=== PATIENT | male | born 1970 | race African-American/Black ===

== ENCOUNTER 2018-01-04 04:03 | Observation (INO) ==
[2018-01-04] MEDS ORDERED: Ketorolac Inj 30 MG/ML (IVP) Vial IV.PUSH ONE (04:17)
--- NOTE | 2018-01-04 04:24 | ED ---
HPI General Chief Complaint: Chest Pain Stated Complaint: Chest Pain Time Seen by Provider: 01/04/18 04:17 Source: patient and EMS Mode of arrival: EMS Limitations: no limitations History of Present Illness HPI narrative: 47-year-old male with history of hypertension and 2-year history of polysubstance abuse presents to the emergency department by EMS transport for complaint of not feeling well and having chest pain. Patient states he was recently seen in the emergency department here observed overnight and discharged without a stress test. Patient states he had a stress test in the past but not for some time. Patient lives in [place] normally but is here and states that this is not unhealthy environment for him due to all the drugs that are available. Patient admits to daily alcohol use and admits to cocaine use. Patient states that he is trying to move back to [place] but in the meantime because of not feeling well decided to come to the emergency room. Patient states that he has had no relief from the nitroglycerin provided by paramedics and was given aspirin prior to arrival to the emergency department. Patient states he feels like he is getting some shakes from not drinking alcohol recently. Patient states he last used cocaine 2 days ago. Patient has not felt well for 2 days. Patient denies other complaints. "I need somebody to tell me what is wrong because I know something is wrong". complaint: Reports chest pain STEMI Alert: No Onset (ago): day(s) Duration: intermittent and progressively worsening Onset: during rest, during exertion and associated with drug use Pain location: Reports substernal Severity: severe Severity scale (1-10): 7 Quality: Reports tightness, aching and dull Pain radiation: Reports none Relieving factors: nothing Exacerbating factors: exertion and movement Context: Denies recent illness, recent surgery, recent immobilization, recent travel, trauma/injury, new medications and history of DVT/PE Associated symptoms: Denies nausea, vomiting, diaphoresis, dyspnea, sense of impending doom, syncope, palpitations, fever, cough and leg swelling Treatments prior to arrival chest pain: Reports aspirin and nitroglycerin Related Data Home Medications Medication Instructions Recorded Confirmed lisinopril 10 mg PO DAILY 12/25/17 01/04/18 quetiapine [Seroquel] 200 mg PO BID 12/25/17 01/04/18 Allergies Allergy/AdvReac Type Severity Reaction Status Date / Time No Known Allergies Allergy Verified 12/25/17 11:37 Review of Systems ROS: all other systems reviewed are negative PMFSH Medical History Medical History Bipolar 1 disorder (Acute) Depression (Acute) Hypertension (Acute) Social History Social History Substance History: Active Abuse Second Hand Smoke Exposure: No Smoking Status: Current every day smoker Tobacco Type: Cigarettes How Often Do You Have a Drink Containing Alcohol: 4 or more times a week Recent Travel in [facility] within the Last 8 Weeks: No Recent Out of Country Travel within the Last 8 Weeks: No Exam Narrative Exam Narrative: GENERAL: Well-nourished, well-developed patient. GCS 15. No acute distress no respiratory distress. SKIN: Focused skin assessment warm/dry. HEAD: Normocephalic. EYES: No scleral icterus. No injection or drainage. NECK: Supple, trachea midline. No JVD or lymphadenopathy. CARDIOVASCULAR: Regular rate and rhythm without murmurs, gallops, or rubs. RESPIRATORY: Breath sounds equal bilaterally. No accessory muscle use. GASTROINTESTINAL: Abdomen soft, non-tender, nondistended. MUSCULOSKELETAL: No cyanosis, or edema. BACK: Nontender without obvious deformity. No CVA tenderness. Course Initial Documented Vital Signs Pulse Rate 87 01/04/18 04:07 Respiratory Rate 14 01/04/18 04:07 Blood Pressure 138/90 01/04/18 04:07 Pulse Oximetry 99 01/04/18 04:07 Last Documented Vital Signs Pulse Rate 87 01/04/18 04:20 Respiratory Rate 17 01/04/18 04:20 Blood Pressure 138/90 01/04/18 04:20 Pulse Oximetry 100 01/04/18 04:20 Medical Decision Making MDM Narrative Medical decision making narrative: 47-year-old male with history of substance use and hypertension presents for evaluation of chest pain and not feeling well. Patient placed on monitor and storage bin tender IV access obtain EKG ordered specimens collected and sent for resulting patient is Arty received nitroglycerin without relief administered Toradol 30 mg IV CBC with automated differential and metabolic panel grossly normal range Troponin I less than 0.02 CK-MB percent not elevated EKG shows no acute ST elevation or injury pattern Patient given Toradol for pain management with some pain relief but continues to complain of pain. Patient has history of cocaine abuse age 47 and hypertension returns for complaint of chest pain will place in chest pain center per protocol in view of history of alcohol use and serum alcohol 3 will also add [facility] protocol. Urine drug screen pending Medical Screen Exam Complete: Yes Emergency Medical Condition: Yes Differential Diagnosis Differential Diagnosis: Atypical chest pain, chest pain, ACS, cocaine induced spasm/ischemia, polysubstance abuse, alcoholism, electrolyte disturbance, arrhythmia Medical Records Medical records reviewed: Yes I reviewed the patient's medical records. Lab Data Lab results reviewed: Yes I reviewed the patient's lab results. Result diagrams: 01/04/18 04:25 01/04/18 04:25 Lab Results 01/04/18 01/04/18 01/04/18 Range/Units 04:25 04:25 04:25 WBC 8.4 (4.0-11.0) th/mm3 RBC 4.68 (4.50-5.90) mil/mm3 Hgb 13.5 (13.0-17.0) gm/dL Hct 38.3 L (39.0-51.0) % MCV 81.7 (80.0-100.0) fL MCH 28.8 (27.0-34.0) pg MCHC 35.2 (32.0-36.0) % RDW 16.1 (11.6-17.2) % Plt Count 225 (150-450) th/mm3 MPV 8.5 (7.0-11.0) fL Neut % (Auto) 56.0 (16.0-70.0) % Lymph % (Auto) 36.9 (9.0-44.0) % [place] % (Auto) 6.0 (0.0-8.0) % Eos % (Auto) 0.7 (0.0-4.0) % Baso % (Auto) 0.4 (0.0-2.0) % Neut # (Auto) 4.7 (1.8-7.7) th/mm3 Lymph # (Auto) 3.1 (1.0-4.8) th/mm3 [place] # (Auto) 0.5 (0.0-0.9) th/mm3 Eos # (Auto) 0.1 (0.0-0.4) th/mm3 Baso # (Auto) 0.0 (0.0-0.2) th/mm3 WBC Differential . Differential Comment Auto diff final Sodium 141 (136-145) meq/L Potassium 3.8 (3.5-5.1) meq/L Chloride 106 (98-107) meq/L Carbon Dioxide 27.7 (21.0-32.0) meq/L Anion Gap 7 (5-15) meq/L BUN 7 (7-18) mg/dL Creatinine 0.89 (0.60-1.30) mg/dL Estimated GFR Greater than 89 (>89) mL/min Random Glucose 84 (74-106) mg/dL Calcium 8.7 (8.5-10.1) mg/dL Magnesium 2.2 (1.5-2.5) mg/dL Total Bilirubin 0.7 (0.2-1.0) mg/dL AST 21 (15-37) U/L ALT 27 (12-78) U/L Alkaline Phosphatase 81 (45-117) U/L Total Creatine Kinase 359 H (39-308) U/L CK-MB (CK-2) Less than 1.0 (0.5-3.6) ng/mL CK-MB (CK-2) % 0.3 (0.0-4.0) % Troponin I Less than 0.02 L (0.02-0.05) ng/mL Total Protein 7.4 (6.4-8.2) g/dL Albumin 3.7 (3.4-5.0) g/dL Lipase 120 (73-393) U/L Serum Alcohol Less than 3 (0-5) mg/dL Imaging Data Radiologist's impression: Chest X-Ray 01/04/18 04:17 CONCLUSION: No acute cardiopulmonary disease. ECG Data Interpretation: EKG normal sinus rhythm left axis deviation no acute ST elevation nonspecific T wave changes Discharge Plan Discharge Disposition Patient Disposition: 30 Still Patient Discharge Condition Condition: Stable Discharge Details Diagnosis: Chest pain, H/O cocaine abuse, H/O ETOH abuse, Hypertension Physicians Team ED Provider: Demetrice Whipple Primary Care Provider: Primary Care Micheline Pelayo Attending Provider: Teofilo Gay ED Status: Admitted Observation Patient
[2018-01-04 04:55] LABS: Baso % (Auto) 0.4 % (0.0-2.0); Eos # (Auto) 0.1 th/mm3 (0.0-0.4); Eos % (Auto) 0.7 % (0.0-4.0); Hematocrit 38.3 % (39.0-51.0); Hemoglobin 13.5 gm/dL (13.0-17.0); Lymph # (Auto) 3.1 th/mm3 (1.0-4.8); Lymph % (Auto) 36.9 % (9.0-44.0); Mean Corpuscular HGB Conc 35.2 % (32.0-36.0); Mean Corpuscular Hemoglobin 28.8 pg (27.0-34.0); Mean Corpuscular Volume 81.7 fL (80.0-100.0); Mean Platelet Volume 8.5 fL (7.0-11.0); Mono # (Auto) 0.5 th/mm3 (0.0-0.9); Neut # (Auto) 4.7 th/mm3 (1.8-7.7); Platelet Count 225 th/mm3 (150-450); Red Blood Count 4.68 mil/mm3 (4.50-5.90); Red Cell Distribution Width 16.1 % (11.6-17.2); White Blood Count 8.4 th/mm3 (4.0-11.0)
[2018-01-04 05:12] LABS: Alanine Aminotransferase 27 U/L (12-78); Albumin 3.7 g/dL (3.4-5.0); Anion Gap 7 meq/L (5-15); Aspartate Aminotransferase 21 U/L (15-37); Blood Urea Nitrogen 7 mg/dL (7-18); Calcium 8.7 mg/dL (8.5-10.1); Carbon Dioxide 27.7 meq/L (21.0-32.0); Chloride 106 meq/L (98-107); Glomerular Filtration Rate Greater Than 89 mL/min (>89); Glucose,Random 84 mg/dL (74-106); Lipase 120 U/L (73-393); Magnesium 2.2 mg/dL (1.5-2.5); Potassium 3.8 meq/L (3.5-5.1); Sodium 141 meq/L (136-145)
[2018-01-04 05:15] LABS: Creatine Kinase 359 U/L (39-308)
[2018-01-04 05:17] LABS: Alkaline Phosphatase 81 U/L (45-117); Total Protein 7.4 g/dL (6.4-8.2)
[2018-01-04] MEDS ORDERED: Sod Chloride 0.9% Inj 1,000 ML IV.SIG SCH (05:30)
[2018-01-04 05:32] LABS: CKMB Percent 0.3 % (0.0-4.0)
--- NOTE | 2018-01-04 05:32 | XR ---
EXAM DATE: 01/04/2018 4:17 AM EDT AGE/SEX: 47 years / Male INDICATIONS: Chest pain that won't resolve. CLINICAL DATA: This is the patient's subsequent encounter. Patient reports that signs and symptoms h ave been present for 1 week and indicates a pain score of 6/10. MEDICAL/SURGICAL HISTORY: None. None. COMPARISON: [facility], CHEST 1V SINGLE AP, 12/25/2017. . FINDINGS: A single AP view of the chest demonstrates the lungs to be symmetrically aerated without evidence of mass, infiltrate or effusion. The cardiomediastinal contours are unremarkable. Osseous structures a re intact. CONCLUSION: No acute cardiopulmonary disease. Electronically signed by: Ernie Odonnell MD 01/04/2018 5:31 AM EDT
[2018-01-04] MEDS ORDERED: Haloperidol Inj 5 MG/ML Ampul IV.PUSH PRN (06:35)
[2018-01-04] MEDS ORDERED: LORazepam 1 MG Tablet PO PRN (06:35)
[2018-01-04] MEDS ORDERED: Acetaminophen 500 MG Tablet PO PRN (06:35)
[2018-01-04 07:36] LABS: Amphetamine Screen,Urine Neg (Neg); Barbiturate Screen,Urine Neg (Neg); Cannabinoid Screen,Urine Neg (Neg); Cocaine Screen,Urine Pos (Neg)
[2018-01-04 07:44] LABS: Opiate Screen,Urine Neg (Neg)
[2018-01-04 08:03] LABS: Creatine Kinase 326 U/L (39-308)
[2018-01-04 08:18] LABS: CKMB Percent 0.3 % (0.0-4.0)
--- NOTE | 2018-01-04 12:31 | P.HPCA ---
History of Present Illness Primary Care Physician: No Primary Care Physician Chief Complaint: Chest pain History of Present Illness: 47-year-old male with history of hypertension and polysubstance abuse presents emergency room for further evaluation of chest pain. Location substernal. Characterizes pressure. Onset "problems been going on for years." No radiation. No associated symptoms of nausea, vomiting, shortness of breath, or diaphoresis. No precipitating or relieving factors. States he had chest pain even when he is not using drugs. Endorses a recent 4-day binge on cocaine and alcohol is left him with "no energy" and has not sleep in 4 days. No known hyperlipidemia, coronary artery disease, or diabetes. Recently relocated from [place]. Plans to return to [place] next week. No recent illness, fever, or injury. Past cardiac testing Remote ETT in past. Social history No known coronary artery disease, diabetes, or hyperlipidemia. Known hypertension. Endorses he is often noncompliant with BP medications due to his frequent drug use. Current smoker 1 pack/daily. Daily alcohol and cocaine use. Last use alcohol 2 days ago. Disabled. Sometimes requires a cane. Family history Noncontributory for early onset cardiovascular disease - Diagnosis (1) Atypical chest pain (2) Tobacco use (3) Cocaine abuse (4) ETOH abuse Review of Systems All other systems reviewed negative except as stated in HPI PMFSH - History History Provided By: Patient, Flight Attendant/Inflight Supervisor / EMT - Medical / Surgical Hx Neg / Unobtainable Surgical History: No Previous Surgery - Medical History Medical History: Medical History (Last Updated 01/04/18 @ 18:09 by CHRISTOPHER Gallardo) Alcohol use Chronic back pain Cocaine use Bipolar 1 disorder Depression Hypertension - Family History Family History: Family History (Last Updated 01/04/18 @ 18:10 by CHRISTOPHER Gallardo) Father Hypertension Cerebral hemorrhage - Social History I have reviewed the patient's Social History: Yes - Tobacco History Second Hand Smoke Exposure: No Tobacco Use In Past 30 Days: Yes Smoking Status: Current every day smoker Tobacco Type: Cigarettes Packs Per Day: 1 Years Smoked: 30 - Alcohol History How Often Do You Have a Drink Containing Alcohol: 4 or more times a week - Substance Use History Substance History: Active Abuse - Substance Use Type Alcohol Status: Active Crack/Cocaine Status: Active Marijuana Status: Active - Travel History Recent Travel in the [place] Within the Last 8 Weeks: No Recent Travel Out of the Country Within the Last 8 Weeks: No - Immunization History Tetanus Immunization: >5 Years Medications and Allergies Active Medications: Active Medications Acetaminophen (Tylenol) 500 mg PO Q4H PRN PRN Reason: HEADACHE Flumazenil (Romazecon Inj) 0.2 mg IV.PUSH Q1M PRN PRN Reason: OVERSEDATION Haloperidol Lactate (Haldol Inj) 1 mg IV.PUSH Q15M PRN PRN Reason: for severe agitation Sodium Chloride (Ns Inj) 1,000 mls @ 0 mls/hr IV.SIG BOLUS LORENE Lorazepam (Ativan Inj) 1 mg IV.PUSH Q4H PRN PRN Reason: for CIWA 8-10 Lorazepam (Ativan Inj) 2 mg IV.PUSH Q15M PRN PRN Reason: for CIWA > 20 Lorazepam (Ativan Inj) 2 mg IV.PUSH Q1H PRN PRN Reason: for CIWA 15-20 Lorazepam (Ativan Inj) 2 mg IV.PUSH Q2H PRN PRN Reason: for CIWA 11-14 Lorazepam (Ativan) 1 mg PO Q4H PRN PRN Reason: for CIWA 8-10 Lorazepam (Ativan) 2 mg PO Q2H PRN PRN Reason: for CIWA 11-14 Nitroglycerin (Nitrostat Sl) 0.4 mg SL Q5M PRN PRN Reason: CHEST PAIN Sodium Chloride (Ns Flush) 2 ml IV.FLUSH UNSCH PRN PRN Reason: FLUSH AFTER USING IV ACCESS Sodium Chloride (Ns Flush) 2 ml IV.FLUSH BID LORENE Sodium Chloride (Ns Flush) 2 ml IV.FLUSH PRN PRN PRN Reason: FLUSH AFTER USING IV ACCESS Allergies Allergy/AdvReac Type Severity Reaction Status Date / Time No Known Allergies Allergy Verified 12/25/17 11:37 Home Medications Medication Instructions Recorded Confirmed Type lisinopril 10 mg PO DAILY 12/25/17 01/04/18 History quetiapine [Seroquel] 200 mg PO BID 12/25/17 01/04/18 History Exam Vital signs: Vital Signs 01/04/18 04:07 01/04/18 04:20 01/04/18 08:50 Temperature Pulse Rate 87 83 66 Respiratory Rate 14 17 16 Blood Pressure 138/90 138/90 Pulse Oximetry 99 100 99 01/04/18 12:00 Temperature 97.4 F L Pulse Rate 73 Respiratory Rate 16 Blood Pressure 138/91 H Pulse Oximetry 98 Intake & Output 01/03/18 01/04/18 01/04/18 18:59 06:59 18:59 Weight 81.647 kg Narrative: GENERAL: Alert WN, WD, NAD, anxious, -[place] male HEAD: NC, AT NECK: Supple, no masses, trachea midline CV: RRR, without murmur, rub, gallop, no JVD, S1-S2 no S3-S4. No carotid or femoral bruits. Chest wall nontender to palpation. RESP: Diminished lungs throughout bilateral, no crackles, wheeze, rhonchi, symmetrical chest rise, nonlabored, able to speak in full sentences ABD: Soft, NT, ND, no masses, positive bowel tones EXT: Pulses +2x4, no dependent edema MS: Normal tone x4 extremities, nontender, no obvious deformities, full range of motion NEURO: CN II through CN XII grossly intact, motor strength 5/5 PSYCH: A+O x3, flat affect, appropriate speech, anxious mood, questionable insight and judgment SKIN: Normal turgor, normal texture, no lesions, no rashes, brisk cap refill, even hair distribution, multiple tattoos Results 01/04/18 04:25 01/04/18 04:25 Cardiac Enzymes 01/04/18 01/04/18 01/04/18 Range/Units 04:25 04:25 07:07 AST 21 (15-37) U/L CK-MB (CK-2) Less than 1.0 Less than 1.0 (0.5-3.6) ng/mL Troponin I Less than 0.02 L Less than 0.02 L (0.02-0.05) ng/mL 01/04/18 Range/Units 10:20 AST (15-37) U/L CK-MB (CK-2) (0.5-3.6) ng/mL Troponin I Less than 0.02 L (0.02-0.05) ng/mL CBC 01/04/18 Range/Units 04:25 WBC 8.4 (4.0-11.0) th/mm3 RBC 4.68 (4.50-5.90) mil/mm3 Hgb 13.5 (13.0-17.0) gm/dL Hct 38.3 L (39.0-51.0) % Plt Count 225 (150-450) th/mm3 Neut # (Auto) 4.7 (1.8-7.7) th/mm3 Lymph # (Auto) 3.1 (1.0-4.8) th/mm3 [place] # (Auto) 0.5 (0.0-0.9) th/mm3 Eos # (Auto) 0.1 (0.0-0.4) th/mm3 Baso # (Auto) 0.0 (0.0-0.2) th/mm3 Comprehensive Metabolic Panel 01/04/18 Range/Units 04:25 Sodium 141 (136-145) meq/L Potassium 3.8 (3.5-5.1) meq/L Chloride 106 (98-107) meq/L Carbon Dioxide 27.7 (21.0-32.0) meq/L BUN 7 (7-18) mg/dL Creatinine 0.89 (0.60-1.30) mg/dL Calcium 8.7 (8.5-10.1) mg/dL AST 21 (15-37) U/L ALT 27 (12-78) U/L Alkaline Phosphatase 81 (45-117) U/L Total Protein 7.4 (6.4-8.2) g/dL Albumin 3.7 (3.4-5.0) g/dL Intake and Output 01/03/18 01/04/18 01/04/18 22:59 06:59 14:59 Other: Weight 81.647 kg - Imaging and Cardiology Imaging: Impressions Chest X-Ray 01/04/18 04:17 CONCLUSION: No acute cardiopulmonary disease. EKG interpretations - EKG EKG results cardiology: sinus rhythm (Nonspecific ST-T segment change), normal axis Caprini VTE Risk Assessment Caprini VTE Risk Assessment: No/Low Risk (score <= 1) Caprini Risk Assessment Model: Point Value = 1 Point Value = 2 Point Value = 3 Point Value = 5 Age 41-60 Minor surgery BMI > 25 kg/m2 Swollen legs Varicose veins or History of unexplained or recurrent spontaneous Oral contraceptives or hormone replacement Sepsis (< 1 month) Serious lung disease, including pneumonia (< 1 month) Abnormal pulmonary function Acute myocardial infarction Congestive heart failure (< 1 month) History of inflammatory bowel disease Medical patient at bed rest Age 61-74 Arthroscopic surgery Major open surgery (> 45 min) Laparoscopic surgery (> 45 min) Malignancy Confined to bed (> 72 hours) Immobilizing plaster cast Central venous access Age >= 75 History of VTE Family history of VTE Factor V Leiden Prothrombin [id number] Lupus anticoagulant Anticardiolipin antibodies Elevated serum homocysteine Heparin-induced thrombocytopenia Other congenital or acquired thrombophilia Stroke (< 1 month) Elective arthroplasty Hip, pelvis, or leg fracture Acute spinal cord injury (< 1 month) Prophylaxis Regimen: Total Risk Factor Score Risk Level Prophylaxis Regimen 0-1 Low Early ambulation 2 Moderate Order ONE of the following: *Sequential Compression Device (SCD) *Heparin 5000 units SQ BID 3-4 Higher Order ONE of the following medications: *Heparin 5000 units SQ TID *Enoxaparin/Lovenox 40 mg SQ daily (WT < 150 kg, CrCl > 30 mL/min) *Enoxaparin/Lovenox 30 mg SQ daily (WT < 150 kg, CrCl > 10-29 mL/min) *Enoxaparin/Lovenox 30 mg SQ BID (WT < 150 kg, CrCl > 30 mL/min) AND/OR *Sequential Compression Device (SCD) 5 or more Highest Order ONE of the following medications: *Heparin 5000 units SQ TID (Preferred with Epidurals) *Enoxaparin/Lovenox 40 mg SQ daily (WT < 150 kg, CrCl > 30 mL/min) *Enoxaparin/Lovenox 30 mg SQ daily (WT < 150 kg, CrCl > 10-29 mL/min) *Enoxaparin/Lovenox 30 mg SQ BID (WT < 150 kg, CrCl > 30 mL/min) AND *Sequential Compression Device (SCD) Assessment and Plan - Assessment (1) Atypical chest pain Code(s): R07.89 - Other chest pain Status: Acute Plan: Admitted chest pain center. ACS ruled out 3 sets of EKGs and cardiac enzymes. Seen and evaluated by Dr. Angel Luis Ireland. Proceed with Lexiscan today. If unremarkable, plans are to discharge home with follow-up with primary care provider. (2) Tobacco use Code(s): Z72.0 - Tobacco use Status: Chronic Plan: Strongly encouraged and stressed importance of tobacco cessation. Instructed to quit smoking. (3) Cocaine abuse Code(s): F14.10 - Cocaine abuse, uncomplicated Status: Chronic Plan: Strongly encouraged and stressed importance of stopping use of cocaine, risk of potential and [place] discussed. Instructed to quit using cocaine. (4) ETOH abuse Code(s): F10.10 - Alcohol abuse, uncomplicated Status: Chronic Plan: Encouraged considering stopping alcohol use and detox facility.
[2018-01-04] MEDS ORDERED: Regadenoson Inj 0.4 MG/5 ML Syringe IV.PUSH ONE (14:36)
--- NOTE | 2018-01-04 16:03 | NM ---
EXAM DATE: 01/04/2018 2:11 PM EDT AGE/SEX: 47 years / Male INDICATIONS:Angina. . Chest pain. CLINICAL DATA: This is the patient's initial encounter. Patient reports that signs and symptoms have been present for 1 day and indicates a pain score of 2/10. MEDICAL/SURGICAL HISTORY: Hypertension. None. COMPARISON: No prior exams available for comparison. DOSE: 8.8 mCi Tc 99m Myoview at rest 26.4 mCi [id number] at stress 0.4 mg Lexiscan STRESS SYMPTOMS: Short of breath. EJECTION FRACTION: 55 % TECHNIQUE: The patient underwent pharmacologic stress with infusion of prescribed dose. Continuous ECG tracing was monitored during stress. Gated SPECT imaging was performed after stress and conventi onal SPECT imaging was performed at rest. The examination was performed on a SPECT/CT scanner, both attenuation and non-corrected datasets were reviewed. FINDINGS: Distribution: The maximum perfused segment at stress is in the posterobasal wall. Perfusion Study: The pattern of perfusion at stress is within normal limits. Gated Study: There are intact wall motion and wall thickening without hypokinetic or dyskinetic segm ents. The ejection fraction is calculated at 55%. RISK CATEGORY: Low (<1% Annual Motality Rate) CONCLUSION: Negative examination. Electronically signed by: Andrei Powers MD 01/04/2018 4:01 PM EDT
--- NOTE | 2018-01-04 16:54 | TR ---
Date Performed: 01/04/2018 Time Performed: 14:28:54 DOCTOR: Angel Luis Ireland DRUG LIST: CLINICAL HISTORY: REASON FOR TEST: REASON FOR ENDING: OBSERVATION: CONCLUSION: COMMENTS: Lexiscan stress test was performed under standard four minute protocol. Radionuclide was injected one minute prior to ending the test. No electrocardiographic abormalities were present t o suggest ischemia. Nuclear imaging and interpretation are pending.
--- NOTE | 2018-01-04 18:01 | ECG ---
Date Performed: 01/04/2018 Time Performed: 10:33:50 PTAGE: 47 years EKG: Sinus rhythm BORDERLINE LEFT AXIS DEVIATION BORDERLINE ECG INTERPRETATION BASED ON A DEFAULT AGE OF 40 YEARS Sinc e the PREVIOUS TRACING , no significant change noted DOCTOR: Thiago Erickson Interpretating Date/Time 01/04/2018 18:00:42
--- NOTE | 2018-01-04 18:03 | ECG ---
Date Performed: 01/04/2018 Time Performed: 07:13:30 PTAGE: 47 years EKG: Sinus rhythm BORDERLINE LEFT AXIS DEVIATION NONSPECIFIC T-WAVE ABNORMALITY Since the PREVIOUS TRACING , no significant change noted DOCTOR: Thiago Erickson Interpretating Date/Time 01/04/2018 18:02:55
--- NOTE | 2018-01-04 18:06 | ECG ---
Date Performed: 01/04/2018 Time Performed: 04:10:13 PTAGE: 47 years EKG: Sinus rhythm WITH SINUS ARRHYTHMIA MARKED LEFT AXIS DEVIATION NONSPECIFIC T-WAVE ABNORMALITY ABNORMAL ECG PREVIOUS TRACING : 12/25/2017 11.26 Since the previous tracing, no significant change noted DOCTOR: Thiago Erickson Interpretating Date/Time 01/04/2018 18:05:11
== END 2018-01-04 18:55 | disposition home or self-care (01) ==
LOC: NEDA 04:03 → NEPC 04:03 → NEPHCDU 11:50
PROVIDERS: ADMIT Internal Medicine Interventional Cardiology; ATTEND Internal Medicine Interventional Cardiology
DX: F17.210 Nicotine dependence, cigarettes, uncomplicated; R07.89 Other chest pain; I10 Essential (primary) hypertension; F31.9 Bipolar disorder, unspecified; F14.10 Cocaine abuse, uncomplicated; Z82.49 Family history of ischemic heart disease and other diseases of the circulatory system; R94.31 Abnormal electrocardiogram [ECG] [EKG]; F10.10 Alcohol abuse, uncomplicated; Z91.14 Patient's other noncompliance with medication regimen; G89.29 Other chronic pain; M54.9 Dorsalgia, unspecified